=== PATIENT | female | born 1945 | race Two or more races ===

== ENCOUNTER → 2024-09-02 | Outpatient (CLI) | payer MEDICARE, MEDICAID, SELFPAY ==
--- NOTE | 2024-09-02 | XR_ITS ---
Examination: Soft tissue lateral neck single view TECHNIQUE: Soft tissue lateral neck single view Exam date and time: November 02, 2024 1026 hours INDICATIONS: Preop esophagram FINDINGS: Normal epiglottis Prominent cervical spondylosis No cervical fracture IMPRESSION: Normal epiglottis
--- NOTE | 2024-09-02 09:42 | XR_ITS ---
Examination: PA chest single view TECHNIQUE: Upright PA chest single view Exam date and time: September 02, 2024 1021 hours Comparison May 12, 2022 INDICATIONS: Difficulty swallowing months FINDINGS: Normal heart size Exenteration interstitial markings Moderate osteopenia IMPRESSION: Suspicious for pulmonary fibrosis, consider high resolution CT chest without contrast
== END | disposition home or self-care (01) ==
PROVIDERS: PCP Family Medicine; Referring Provider Family Medicine; Visit Provider Family Medicine
DX: R13.10 Dysphagia, unspecified (principal); R91.8 Other nonspecific abnormal finding of lung field; Z01.818 Encounter for other preprocedural examination
CPT/HCPCS: 71045; 72020

== ENCOUNTER → 2024-10-19 | Outpatient (CLI) | payer MEDICARE, MEDICAID, SELFPAY ==
--- NOTE | 2024-10-19 09:13 | XR_ITS ---
Examination: Esophagram standard 18 spot fluoroscopic films of the esophagus Upright PA chest single view Soft tissue lateral neck single view Fluoroscopy Exam date and time: October 19, 2024 0938 hours INDICATIONS: Difficulty swallowing 4 months TECHNIQUE AND FINDINGS: Upright PA chest single view demonstrates normal heart size, mitral valvular calcification Normal epiglottis on the soft tissue lateral neck single view Patient swallowed thin barium with 18 spot fluoroscopic films of the esophagus, 0.07 minutes fluoroscopy Isolated primary peristaltic waves Numerous secondary and tertiary esophageal contractions as well as esophageal spasm Moderate intermittent gastroesophageal reflux Narrowing at the gastroesophageal junction 40% IMPRESSION: Severe esophageal dysmotility Moderate intermittent gastroesophageal reflux Narrowing at the gastroesophageal junction, 40%, likely reflux esophagitis
== END | disposition home or self-care (01) ==
PROVIDERS: PCP Family Medicine; Referring Provider Family Medicine; Visit Provider Family Medicine
DX: K21.9 Gastro-esophageal reflux disease without esophagitis (principal); K22.2 Esophageal obstruction
CPT/HCPCS: 74220; A4699